=== PATIENT | female | born 1950 | race Caucasian/White ===

== ENCOUNTER → 2022-07-04 | Outpatient (CLI) | payer MEDICARE, OTHER ==
--- NOTE | 2022-07-04 08:06 | Diagnostic Imaging Report ---
Indication: Screening. Findings: Abdominal aorta is normal in caliber measuring maximal 2.4 cm transverse and showing normal distal tapering. The 1 cm bilateral common iliacs normal in caliber. There is some echogenic plaque throughout the aorta without significant stenosis. Impression: Mild degrees of calcified plaque with no aneurysm. Dictated by: Dictated on workstation # [id number]
== END ==
LOC: RAD 06:56
PROVIDERS: ATTEND Family Medicine
DX: Z13.6 Encounter for screening for cardiovascular disorders (principal); I35.8 Other nonrheumatic aortic valve disorders
CPT/HCPCS: 76775

== ENCOUNTER → 2022-07-12 | Outpatient (CLI) | payer MEDICARE | LOC: CARDFS 09:00 | PROVIDERS: ATTEND Family Medicine | DX: Z13.6 Encounter for screening for cardiovascular disorders (principal); I51.7 Cardiomegaly; I34.0 Nonrheumatic mitral (valve) insufficiency; I35.1 Nonrheumatic aortic (valve) insufficiency | CPT/HCPCS: 93306 ==